=== PATIENT | female | born 1960 | race Caucasian/White ===

== ENCOUNTER 2016-07-22 17:55 | Emergency (ER) | payer BC ==
[~2016-07-22] VITALS: Ht 157.5 cm; Wt 90.0 kg
[2016-07-22 17:59] VITALS: Ht 157.5 cm; Wt 90.0 kg
--- NOTE | 2016-07-22 19:42 | ERD ---
ER Documentation Chief Complaint Date/Time DATE: 07/22/16 TIME: 19:[address] today HPI 26 year female presents to emergency department for complaints of a fishbone stuck in the throat area while eating today. Patient is complaining of pain sharp in 4/10 scale, is worse upon swallowing. Patient family is able to see the foreign body stuck in the oropharyngeal wall. Patient's family is unable to move it. Patient did not take any medications to help with pain. Patient denies any stridor or shortness of breath. ROS All systems reviewed and are negative except as per history of present illness. Medications Home Meds Reported Medications [none] Unknown Strength No Conflict Check 07/22/16 Allergies Allergies: Coded Allergies: No Known Allergy (Unverified , 07/22/16) PMhx/Soc Medical and Surgical Hx: pt denies Medical Hx, pt denies Surgical Hx Hx Alcohol Use: No Hx Substance Use: No FmHx Family History: No coronary disease, No diabetes, No other Physical Exam Vitals Vital Signs Date Time Temp Pulse Resp B/P Pulse Ox O2 Delivery O2 Flow Rate FiO2 07/22/16 17:59 98.5 90 18 155/90 99 Physical Exam GENERAL: The patient is well developed and appropriate for usual state of health, in no apparent distress. HEENT: Atraumatic. Ears: Normal tympanic membrane, no erythema or bulging. No ear canal swelling. No ear discharge. Nose: normal nasal turbinates, no erythema or swelling. Normal nasal discharge. Throat: oropharynx clear. No tonsillar swelling or tonsillar exudates. No lymphadenopathy. Foreign body fish bone in the oropharyngeal wall. CHEST: Clear to auscultation bilaterally. There are no rales, wheezes or rhonchi. HEART: Regular rate and rhythm. No murmurs, clicks, rubs or gallops. No S3 or S4. ABDOMEN: Soft, nontender and nondistended. Good bowel sounds. No rebound or guarding. No gross peritonitis. No gross organomegaly or masses. No Li sign or McBurney point tenderness. BACK: No midline or flank tenderness. EXTREMITIES: Equal pulses bilaterally. There is no peripheral clubbing, cyanosis or edema. No focal swelling or erythema. Full range of motion. Grossly neurovascularly intact. NEURO: Alert and oriented. Cranial nerves 2-12 intact. Motor strength in all 4 extremities with 5/5 strength. Sensation grossly intact. Normal speech and gait. SKIN: There is no apparent rash or petechia. The skin is warm and dry. HEMATOLOGIC AND LYMPHATIC: There is no evidence of excessive bruising or lymphedema. No gross cervical, axillary, or inguinal lymphadenopathy. Procedures/MDM Procedure note: After patient's verbal consent, the visualized foreign body was removed using a tweezer, this was removed without difficulty, patient does not have any shortness of breath. Patient verbalizing much better afterwards. No foreign body sensation after removal of the foreign body visualized. Medical decision making: patient has a foreign body in the throat, mehnazbone, it got stuck, it was removed without any difficulty. No symptoms of respiratory distress. No symptoms of oral airway obstruction. No other foreign body visualized, no foreign body sensation after removal of the foreign body. No laceration noted. Patient was advised to follow with primary care doctor in 1-2 days for reevaluation symptoms. Patient was advised to return to emergency department for any worsening symptoms. Departure Diagnosis: Primary Impression: Foreign body in throat Encounter type: initial encounter Qualified Code: T17.208A - Foreign body in throat, initial encounter Condition: Stable Patient Instructions: Swallowed Foreign Body (Adult) ALLYN KAPADIA NP Jul 22, 2016 19:42
== END 2016-07-22 19:42 | disposition home or self-care (01) ==
LOC: FTE 17:55
DX: T17.208A Unspecified foreign body in pharynx causing other injury, initial encounter (principal); X58.XXXA Exposure to other specified factors, initial encounter; Y92.9 Unspecified place or not applicable